=== PATIENT | female | born 1960 | race Caucasian/White ===

== ENCOUNTER 2019-06-04 11:55 | Emergency (ER) | payer BC, SELFPAY ==
[~2019-06-04] VITALS: Ht 162.6 cm; Wt 68.2 kg
[2019-06-04 12:00] VITALS: BP 123/89
[2019-06-04] MEDS ORDERED: proparacaine 0.5% ophthalmic drops 15ml LEFTEYE ONE (12:15)
== END 2019-06-04 13:35 | disposition home or self-care (01) ==
LOC: ER 11:56
DX: H57.12 Ocular pain, left eye (principal)
CPT/HCPCS: 99282